=== PATIENT | female | born 1990 | race Caucasian/White ===

== ENCOUNTER 2018-10-05 13:31 | Emergency (ER) | payer OTHER ==
[2018-10-05 13:43] VITALS: BP 103/60; PULSE 96; TEMP 98.4; BMI 20.7
--- NOTE | 2018-10-05 14:06 | PDOC ---
History of Present Illness - General Chief Complaint: Cold Symptoms Stated Complaint: CHEST PAIN Time Seen by Provider: 10/05/18 13:58 - History of Present Illness Initial Comments: 10/05/18 14:02 28-year-old female without comorbidities presents for cough fever chills and body aches 3 days. Past History - Past Medical History Allergies/Adverse Reactions: Allergies Allergy/AdvReac Type Severity Reaction Status Date / Time No Known Allergies Allergy Verified 10/05/18 13:40 Home Medications: Ambulatory Orders NK [No Known Home Medication] 10/28/15 Asthma: No Cancer: No Cardiac Disorders: No COPD: No Diabetes: No HTN: No Seizures: No Thyroid Disease: No - Immunization History Immunization Up to Date: Yes - Suicide/Smoking/Psychosocial Hx Smoking Status: No Smoking History: Never smoked Have you smoked in the past 12 months: No Number of Cigarettes Smoked Daily: 0 Information on smoking cessation initiated: No Hx Alcohol Use: No Drug/Substance Use Hx: No Substance Use Type: None Hx Substance Use Treatment: No Review of Systems - Review of Systems Constitutional: Yes: Chills, Fever, Malaise, Night Sweats Respiratory: Yes: Cough *Physical Exam - Vital Signs Last Vital Signs Temp Pulse Resp BP Pulse Ox 98.4 F 96 H 16 103/60 98 10/05/18 13:40 10/05/18 13:40 10/05/18 13:40 10/05/18 13:40 10/05/18 13:40 - Physical Exam Comments: 10/05/18 14:03 HEAD: NC/AT EYES: Conjuntiva clear Ears: Canals and TM's normal NOSE: No d/c THROAT: Moist mucous membrances, oral pharanx clear, uvula midline NECK: Supple without adenopathy CARDIAC: S1 S2 LUNGS: CTA Full and Equal breath sounds ABDOMEN: Soft NT ND MS: Full ROM in all joints without edema NEUROLOGIC: No gross sensory or motor deficits, NVID SKIN: Normal color and temperature no lesions or rashes Moderate Sedation - Procedure Monitoring Vital Signs: Procedure Monitoring Vital Signs Temperature 98.4 F 10/05/18 13:40 Pulse Rate 96 H 10/05/18 13:40 Respiratory Rate 16 10/05/18 13:40 Blood Pressure 103/60 10/05/18 13:40 O2 Sat by Pulse Oximetry (%) 98 10/05/18 13:40 *DC/Admit/Observation/Transfer Diagnosis at time of Disposition: Upper respiratory infection - Discharge Dispostion Disposition: HOME Condition at time of disposition: Stable Decision to Admit order: No - Referrals - Patient Instructions Printed Discharge Instructions: DI for Viral Upper Respiratory Infection -- Adult Additional Instructions: Little and Motrin as directed for pain and fever. Return to the emergency room should symptoms worsen or go unresolved. Follow-up with her primary care physician in one to 2 days for further evaluation and treatment options. He may take [id number] Mucinex DM for cough as directed for nighttime use - Post Discharge Activity
== END 2018-10-05 14:36 | disposition home or self-care (01) ==
LOC: JERFT 13:31
DX: J06.9 Acute upper respiratory infection, unspecified (principal)
CPT/HCPCS: 87804; 99281-25

== ENCOUNTER 2019-03-01 16:34 | Emergency (ER) | payer OTHER | END 2019-03-01 19:40 | disposition home or self-care (01) | LOC: JER 16:34 ==

== ENCOUNTER 2019-03-09 17:12 | Emergency (ER) | payer OTHER | END 2019-03-09 20:33 | disposition home or self-care (01) | LOC: JER 17:12 ==

== ENCOUNTER → 2019-03-21 | Emergency (ER) | payer OTHER | LOC: JER 18:31 ==

== ENCOUNTER 2019-03-30 14:37 | Emergency (ER) | payer OTHER ==
[2019-03-30 14:52] VITALS: BP 105/64; PULSE 81; TEMP 98.4; BMI 21.5
--- NOTE | 2019-03-30 15:21 | PDOC ---
History of Present Illness - General Chief Complaint: Vaginal Bleeding Stated Complaint: 7WKS/ SENT BY PCP Time Seen by Provider: 03/30/19 15:03 - History of Present Illness Initial Comments: 03/30/19 15:47 The patient is a 28 year old 7 week female who presents for evaluation of vaginal bleeding. The patient reports that she has been having intermittent vaginal bleeding over the past several weeks for which she has presented to the ED several times for. She was recently evaluated by her OB 4 days ago and had confirmed IUP with a HR of 114. She noted passing several clots over the next few days following her OB appointment prompting her presentation to the ED for further evaluation today. She reports some intermittent lower abdominal cramping as well, but otherwise denies fevers, chills, SOB, chest pain, nausea, vomiting, or changes with urination or bowel movements. Past History - Past Medical History Allergies/Adverse Reactions: Allergies Allergy/AdvReac Type Severity Reaction Status Date / Time No Known Allergies Allergy Verified 03/30/19 14:48 Home Medications: Ambulatory Orders Cephalexin Monohydrate [Keflex -] 500 mg PO BID #20 capsule 03/21/19 Asthma: No Cancer: No Cardiac Disorders: No COPD: No Diabetes: No HTN: No Seizures: No Thyroid Disease: No - Reproductive History (#): 2 Para: 1 - Immunization History Immunization Up to Date: Yes - Suicide/Smoking/Psychosocial Hx Smoking Status: No Smoking History: Never smoked Have you smoked in the past 12 months: No Number of Cigarettes Smoked Daily: 0 Hx Alcohol Use: No Drug/Substance Use Hx: No Substance Use Type: None Hx Substance Use Treatment: No Review of Systems - Review of Systems Comments:: 03/30/19 15:50 Constitutional: No fevers, chills, fatigue, malaise HEENT: No Rhinorrhea, nasal congestion, visual changes Cardiovascular: No chest pain, syncope, palpitations, lightheadedness Respiratory: No Cough, SOB, Hemoptysis, Gastrointestinal: Lower abdominal cramping. No Nausea, Vomiting, Constipation, Diarrhea, Melena Genitourinary: Vaginal bleeding. No Dysuria, Frequency, Urgency, Hesitancy, Hematuria, Flank pain Musculoskeletal: No Myalgia, arthralgia Skin: No rashes, itching, bruising, pallor Neurologic: No Headache, Dizziness, Numbness, Weakness, or Tingling Psychiatric: No Hallucinations. No SI or HI *Physical Exam - Vital Signs Last Vital Signs Temp Pulse Resp BP Pulse Ox 98.4 F 81 16 105/64 98 03/30/19 14:48 03/30/19 14:48 03/30/19 14:48 03/30/19 14:48 03/30/19 14:48 - Physical Exam Comments: 03/30/19 15:51 General Appearance: Nourished. No Apparent Distress HEENT: No Pharyngeal Erythema, Tonsillar Exudate, Tonsillar Erythema Neck: No Cervical Lymphadenopathy Respiratory/Chest: Lungs Clear, Normal Breath Sounds. No Crackles, Rales, Rhonchi, Wheezing Cardiovascular: Regular Rhythm, Regular Rate. No Murmur, Gallops, Rubs Gastrointestinal/Abdominal: Normal Bowel Sounds, Soft. No Guarding, Rebound, Tenderness Pelvic Exam: Normal External Exam. Blood in the vaginal vault with no clots. Closed cervical OS. No CMT Musculoskeletal: No CVA Tenderness Extremity: Normal Capillary Refill Integumentary: Normal Color, Dry, Warm Neurologic: Fully Oriented, Alert, Normal Mood/Affect, Normal Response, ED Treatment Course - LABORATORY CBC & Chemistry Diagram: 03/30/19 15:49 03/30/19 15:49 Medical Decision Making - Medical Decision Making 03/30/19 15:52 The patient is a 28 year old 7 week female who presents for evaluation of vaginal bleeding. Differential includes but is not limited to: Threatened , Spontaneous , Missed . Given the patient' s history and physical exam, we will obtain a cbc, cmp, beta-hcg, ua, transvaginal US to evaluate further. The patient has recent type and screen showing that she is B positive. We will continue to monitor and reassess while here in the ED. 03/30/19 17:29 CBC, cmp, UA is unremarkable. Beta-hcg is 400. Transvaginal US no longer demonstrates an intrauterine and cannot identify a pole with retained blood products vs. products of conception as read by our radiologist most consistent with a miscarriage. The patient appears clinically well on exam. We are comfortable discharging the patient home in stable condition. Patient made aware of impression and plan, return precautions discussed including but not limited to worsening pain or symptoms, fevers, or signs of infection, chest pain, respiratory distress, inability to tolerate oral intake, dehydration, syncope, or neurologic changes. The patient is to follow up with PMD and specialist as recommended within 2-3 days, follow up information provided and the patient will call for an appointment. The patient is to take medications as instructed for duration of time and continue with supportive care , avoid triggers and precipitants. Patient is safe for outpatient follow-up. *DC/Admit/Observation/Transfer Diagnosis at time of Disposition: Miscarriage - Discharge Dispostion Disposition: HOME Condition at time of disposition: Stable - Referrals Referrals: Jorge Arana MD [Primary Care Provider] - - Patient Instructions Printed Discharge Instructions: DI for Miscarriage Additional Instructions: 1) Please follow-up with your primary care doctor in the next 2-3 days. Please call tomorrow to schedule a follow up appointment. If you cannot follow up with your doctor within 1 week please return to the Emergency Department for any urgent issues. 2) You were given a copy of the tests performed today. Please bring the results with you and review them with your primary care doctor. Your laboratory results were normal here in the ER. Your Imaging results show that you are experiencing a Miscarriage. Please call to follow up with your OB specialist within the next few days. 3) If you have any worsening of symptoms or any other concerns please return to the ER immediately. Return if worsening symptoms including fevers, headache, vomiting, visual or hearing disturbances, abdominal pain, chest pain, shortness of breath, syncope, dehydration, inability to take things by mouth/vomiting, altered mental status, or worsening concerning symptoms. - Post Discharge Activity
--- NOTE | 2019-03-30 15:50 | PDOC ---
Documentation entered by Heike Lala SCRIBE, acting as scribe for Nikki Angela DO. Nikki Angela DO: This documentation has been prepared by the Spike white Adrianna, SCRIBE, under my direction and personally reviewed by me in its entirety. I confirm that the documentation accurately reflects all work, treatment, procedures, and medical decision making performed by me. Attending Attestation - Resident Resident Name: Colin Underwood - ED Attending Attestation I have performed the following: I have examined & evaluated the patient, The case was reviewed & discussed with the resident, I agree w/resident's findings & plan, Exceptions are as noted - HPI HPI: The patient is a 28 year old female (- currently at 7 weeks gestation), with a significant PMH of ovarian cyst, who presents to the ED for evaluation of vaginal bleeding for a few weeks. Patient reports seeing her OB 4 days ago, with a confirmed IUP and a heart rate of 114. She notes she passed one clot following her ultrasound, then another two which then transitioned into intermittent vaginal bleeding. She reports associated mild, intermittent cramping. Allergies: NKDA Past surgical history: None reported Social history: None PCP: None, referred to [facility]: Dr. Buck 03/30/19 16:00 - Physicial Exam PE: Constitutional: Awake, alert, oriented. No acute distress. Head: Normocephalic. Atraumatic Eyes: PERRL. EOMI. Conjunctivae are not pale. ENT: Mucous membranes are moist and intact. Neck: Supple. Full ROM. Cardiovascular: Regular rate. Regular rhythm. S1, S2 regular. Distal pulses are 2+ and symmetric. Pulmonary/Chest: No evidence of respiratory distress. Clear to auscultation bilaterally No wheezing, rales or rhonchi. Abdominal: Soft and non-distended. There is no tenderness. No rebound, guarding or rigidity. No organomegaly. No palpable masses. Good bowel sounds. Back: No CVA tenderness. Pelvic: +Dark red blood in the vault with no clots. OS is closed. Musculoskeletal: No edema. No cyanosis. No clubbing. Full range of motion in all extremities. Nocalf tenderness. Radial/pedal pulses are intact and 2+ bilaterally Skin: Skin is warm and dry. No petechiae. No purpura. Neurological: Alert and oriented to person, place, and time. Cranial nerves II -XII are grossly intact. Normal speech. Strength is grossly symmetric. No sensory deficits. Psychiatric: Good eye contact. Normal interaction, affect and behavior. 03/30/19 16:00 - Medical Decision Making OUTSIDE TRANSVAGINAL ULTRASOUNDS: There is one well circumscribed left posterior uterus 4mm likely fibroid. There is a single intrauterine with positive cardiac activity reported measuring 114bpm. A normal yolk sac was seen, however the overall appearance of the gestational sac is irregular. CRL gives an EGA of 6 weeks and 4 days. Inferior to the gestational sac a hypoechoic collection is seen measuring 16 X 4mm likely representing a hematoma. Bilateral ovaries were seen WNL. The right contains a likely corpus luteum. A 10mm left paraovarian cyst is seen. A small amount of free fluid is seen within the cul de sac. The cervix appears long and closed. I, Dr. Nikki Angela, DO, attest that this document has been prepared under my direction and personally reviewed by me in its entirety. I further attest, that it accurately reflects all work, treatment, procedures and medical decision -making performed by me. a/p: 28yo at about 7 weeks gestation with vaginal bleeding -states passing clots after tvus on Wednesday by her [employer] - [facility] -states spotting today -pt c/o mild lower pelvic cramping -bedside tvus shows gestational sac without iup or fhr -will send for formal tvus -discussed with the patient -will send labs, ua -will monitor and reassess 03/30/19 16:01 03/30/19 17:10 beta dropping ultrasound pending b+ type and screen 03/30/19 17:19 ultrasound shows retained products vs clot beta dropping suspect active miscarriage - will need follow up with [employer] and expectant management.
[2019-03-30 16:21] LABS: BASO % 0.6 % (0-2.0); EOS % 1.5 % (0-4.5); HEMATOCRIT 38.5 % (32.4-45.2); HEMOGLOBIN 13.5 GM/dL (10.7-15.3); LYMPH % 28.1 % (8-40); MCH 30.7 pg (25.7-33.7); MCHC 35.2 g/dl (32.0-36.0); MEAN CELL VOLUME 87.3 fl (80-96); MEAN PLT VOLUME 9.1 fl (7.5-11.1); MONO % 9.5 % (3.8-10.2); NEUT % 60.3 % (42.8-82.8); PLATELET COUNT 217 K/MM3 (134-434); RBC 4.41 M/mm3 (3.60-5.2); RDW 13.1 % (11.6-15.6); WHITE BLOOD COUNT 5.5 K/mm3 (4.0-10.0)
[2019-03-30 16:29] LABS: EPI CELLS 1.6 /HPF (0-5/HPF); HYALINE CASTS 0 /lpf (0-8); PH,URINE 5.5 (5.0-8.0); URINE APPEARANCE CLEAR; URINE BACTERIA 37.1 /hpf (NEGATIVE); URINE BILIRUBIN NEGATIVE (NEGATIVE); URINE COLOR YELLOW; URINE GLUCOSE (UA) NEGATIVE (NEGATIVE); URINE KETONE NEGATIVE (NEGATIVE); URINE LEUK ESTERASE NEGATIVE (NEGATIVE); URINE NITRITE NEGATIVE (NEGATIVE); URINE PROTEIN NEGATIVE (NEGATIVE); URINE RBC 1 /hpf (0-4); URINE UROBILINOGEN 0.2 mg/dL (0.2-1.0); URINE WBC 1 /hpf (0-5)
[2019-03-30 16:38] LABS: BILIRUBIN,TOTAL 0.4 mg/dL (0.2-1); CALCIUM 9.5 mg/dL (8.5-10.1); CREATININE 0.8 mg/dL (0.55-1.3); TOT PROT 7.3 g/dl (6.4-8.2)
== END 2019-03-30 17:36 | disposition home or self-care (01) ==
LOC: JER 14:37
DX: O26.891 Other specified pregnancy related conditions, first trimester (principal); O20.8 Other hemorrhage in early pregnancy; Z3A.01 Less than 8 weeks gestation of pregnancy; O02.1 Missed abortion
CPT/HCPCS: 36415; 76817-TC; 80053; 81003; 84702; 85025; 87086; 99282-25

== ENCOUNTER 2024-12-18 18:36 | Emergency (ER) | payer OTHER ==
[2024-12-18 19:02] VITALS: BP 101/72; PULSE 115; RESP 16; TEMP 98.4; BMI 22.3
[2024-12-18] MEDS ORDERED: ONDANSETRON *ODT* 4 MG TABLET ONE (20:16)
[2024-12-18] MEDS ORDERED: ACETAMINOPHEN 325 MG TABLET (FP) ONE (20:16)
[2024-12-18] MEDS: ACETAMINOPHEN 325 MG TABLET (FP) PO ONE (20:34)
[2024-12-18] MEDS: ONDANSETRON *ODT* 4 MG TABLET SL ONE (20:35)
[2024-12-18 22:02] LABS: HIV INTERPRETATION NEGATIVE (NEGATIVE)
== END 2024-12-18 21:10 | disposition home or self-care (01) ==
LOC: JER 18:36
DX: R11.2 Nausea with vomiting, unspecified (principal)
CPT/HCPCS: 36415; 84703; 86803; 87389; 99283-25; Q0162